=== PATIENT | male | born 1965 | race Hispanic/Latino ===

== ENCOUNTER 2016-08-24 10:54 | Emergency (ER) | payer SELFPAY ==
[2016-08-24 11:14] LABS: HEMOGLOBIN 16.3 g/dL (14.0-18.0); MEAN CELL VOLUME 89.2 fL (80.0-100.0); MEAN CORPUS. HGB CONCENTRATION 34.8 g/dL (32.0-36.0); RED BLOOD COUNT 5.27 X 10^6uL (4.20-6.10); WHITE BLOOD COUNT 7.6 X 10^3uL (3.9-10.7)
[2016-08-24 11:15] LABS: EOSINOPHILS 0.8 % (0.0-6.0); EOSINOPHILS# 0.1 X 10^3uL (0.0-0.4); LYMPHOCYTES 22.9 % (20.0-40.0); LYMPHOCYTES# 1.7 X 10^3uL (0.8-3.8); MEAN PLATELET VOLUME 8.2 fL (7.4-10.4); MONOCYTES 6.8 % (2.0-10.0); MONOCYTES# 0.5 X 10^3uL (0.2-1.0); NEUTROPHILS 69.5 % (54.0-75.0); NEUTROPHILS# 5.3 X 10^3uL (2.6-6.7); PLATELET COUNT 194 X 10^3uL (130-440); RED CELL DISTRIBUTION WIDTH 12.7 % (11.5-14.5)
[2016-08-24 11:19] LABS: BLOOD UREA NITROGEN 27 mg/dL (9-20); CHLORIDE 103 mmol/L (98-107); EST GLOMERULAR FILTRATION RATE > 60 mL/min; GLUCOSE 103 mg/dL (70-100); POTASSIUM 4.1 mmol/L (3.5-5.1); SODIUM 140 mmol/L (137-145)
[2016-08-24 11:31] LABS: TROPONIN I 0.044 ng/mL (0.00-0.034)
[2016-08-24] MEDS ORDERED: NITROGLYCERIN OINT 1 GM PACKET ONE (11:35)
[2016-08-24] MEDS ORDERED: NITROGLYCERIN 0.4 MG TAB.SUBL SUBLINGUAL ONE (11:35)
[2016-08-24] MEDS ORDERED: HEPARIN SOD PORCINE 5,000 UNITS/ML VIAL ONE (11:38)
[2016-08-24] MEDS ORDERED: CLOPIDOGREL BISULFATE 75 MG TABLET PO ONE (11:38)
[2016-08-24] MEDS ORDERED: TENECTEPLASE 50 MG KIT IV ONE (11:38)
--- NOTE | 2016-08-24 12:08 | ER PHYSICIAN DOCUMENTATION ---
Physician Documentation [facility] Name:Salazar Brennan Age:50 yrs Sex:Male :1965 Arrival Date:08/24/2016 Time:10:54 BedTrauma-C Private MD: Mina Pedro Disposition: 08/24 11:35 Critical Care:. tn Disposition: 08/24/16 11:38 Transfer ordered to [facility]. Diagnosis is Anterior Myocardial Infarction, STEMI. - Reason for transfer: Higher level of care. - Accepting physician is Dr. Villanueva. - Condition is Serious. - Problem is new. - Symptoms have improved. COBRA Form completed? Yes Transfer - Mode of Transportation Ambulance HPI: 11:26 This 50 yrs old Male presents to ER via Private Vehicle with complaints of sc Chest Pain. 11:26 The patient or guardian reports chest pain that is located primarily in the anterior sc chest wall. Onset: at 09:30. The pain does not radiate. There has been no movement of pain. Associated signs and symptoms: Pertinent positives: diaphoresis, lightheadedness, nausea. The chest pain is described as aching, a pressure. Duration: The patient or guardian reports a single episode, that is still ongoing. Severity of pain: At its worst the pain was severe in the emergency department the pain has improved. Historical: - Allergies: No known drug Allergies; - Home Meds: 1. None - PMHx: None; - PSHx: None; - Ebola Screening: : Patient negative for fever greater than or equal to 101.5 degrees Fahrenheit, and additional compatible Ebola Virus Disease symptoms. Patient denies exposure to infectious person. Patient denies travel to an Ebola-affected area in the 21 days before illness onset. No symptoms or risks identified at this time. . - Immunization history: Flu Vaccine >1 year. - Social history: Smoking status: Patient states was never smoker of tobacco. Patient/guardian denies using alcohol, street drugs, IV drugs, marijuana. ROS: 11:28 Constitutional: Negative for fever, chills, and weight loss. sc Eyes: Negative for injury, pain, redness, and discharge. Neck: Negative for injury, pain, and swelling. Respiratory: Negative for shortness of breath, cough, wheezing, and pleuritic chest pain. Back: Negative for injury and pain. MS/Extremity: Negative for injury and deformity. 11:28 Neuro: Negative for headache, weakness, numbness, tingling, and seizure. sc 11:28 Cardiovascular: Positive for chest pain. 11:28 Abdomen/GI: Positive for nausea. 11:28 Skin: Positive for diaphoresis. Exam: Constitutional: This is a well developed, well nourished patient who is awake, alert, and in no acute distress. Head/Face: Normocephalic, atraumatic. Eyes: Pupils equal round and reactive to light, extra-ocular motions intact. Lids and lashes normal. Conjunctiva and sclera are non-icteric and not injected. Cornea within normal limits. Periorbital areas with no swelling, redness, or edema. ENT: Nares patent. No nasal discharge, no septal abnormalities noted. Tympanic membranes are normal and external auditory canals are clear. Oropharynx with no redness, swelling, or masses, exudates, or evidence of obstruction, uvula midline. Mucous membranes moist. Neck: Trachea midline, no thyromegaly or masses palpated, and no cervical lymphadenopathy. Supple, full range of motion without nuchal rigidity, or vertebral point tenderness. No meningismus. Chest/axilla: Normal chest wall appearance and motion. Nontender with no deformity. No lesions are appreciated. Abdomen/GI: Soft, non-tender, with normal bowel sounds. No distension or tympany. No guarding or rebound. No evidence of tenderness throughout. Back: No spinal tenderness. No costovertebral tenderness. Full range of motion. Skin: Warm, dry with normal turgor. Normal color with no rashes, no lesions, and no evidence of cellulitis. 11:29 MS/ Extremity: Pulses equal, no cyanosis. Neurovascular intact. Full, normal range sc of motion, negative Homans's, calves equal bilaterally. 11:29 Cardiovascular: Rate: normal, Rhythm: regular, Pulses: Pulses are 2+ in right radial artery, right posterior tibial artery, left radial artery and left posterior tibial artery. 11:29 Respiratory: the patient does not display signs of respiratory distress, Respirations: Breath sounds: are normal, clear throughout. Vital Signs: 11:01 BP 131 / 85 (auto/); sc1 11:01 Pulse 67 MON; Resp 21; Pulse Ox 95% ; sc1 11:15 BP 127 / 87 (auto/); tn1 11:16 Pulse 70 MON; Resp 19; Pulse Ox 94% ; [facility] 11:29 Weight 83.01 kg; st 11:30 BP 122 / 70 (auto/); tn1 11:31 Pulse 74 MON; Resp 24; Pulse Ox 93% ; [facility] [place]:37 BP 105 / 70 (auto/); tn1 11:41 Pulse 75 MON; Resp 20; Pulse Ox 93% ; tn1 11:45 BP 118 / 70 (auto/); tn1 11:46 Pulse 54 MON; Resp 11; Pulse Ox 91% ; [facility] MDM: 11:03 EKG attached [facility] 11:23 Patient medically screened. tn 11:32 Differential diagnosis: abnormal EKG, acute myocardial infarction, anxiety, chest wall sc pain. Patient took aspirin in the Emergency Department. The patient was given a fibrinolytic in the Emergency Department. Data reviewed: vital signs, nurses notes, lab test result(s), EKG, radiologic studies, plain films. Data reviewed: and as a result, I will *Transfer Patient. Data interpreted: surveillance monitor: rate is 70 beats/min, rhythm is normal sinus rhythm. ECG:. 08/24 11:16 Order name: CBC AUTO DIF, MDIF/RMOR IF IND; Complete Time: 12:13 [facility] 08/24 12:13 Interpretation: Normal. tn 08/24 11:23 Order name: BASIC METABOLIC PANEL; Complete Time: 12:13 E[facility] 08/24 12:13 Interpretation: Normal. tn 08/24 11:23 Order name: MAGNESIUM; Complete Time: 12:13 [facility] 08/24 12:13 Interpretation: Normal. tn 08/24 11:32 Order name: TROPONIN I; Complete Time: 12:13 EDAZ 08/24 12:13 Interpretation: Abnormal: TROPONIN I 0.044. tn 08/24 11:20 Order name: CHEST; [place] [id number]; Complete Time: 12:13 EDAZ 08/24 12:13 Interpretation: Normal. tn 08/24 15:31 Order name: CHEST; [place] [id number] [facility] 08/24 11:00 Order name: 12-lead EKG; Complete Time: 11: 08/24 11:00 Order name: Iv Saline Lock; Complete Time: 11: 08/24 11:00 Order name: Place Patient On Monitor; Complete Time: 11: st 08/24 11:00 Order name: Pulse Ox Continuous; Complete Time: 11: st EC:32 Rate is 70 beats/min. Rhythm is regular. QRS [place] is Normal. CT interval is normal. QRS sc interval is normal. QT interval is normal. No Q waves. T waves are Normal. ST Segment is elevated in leads V1, V2, V3, V4, 2-5mm. ST Segment is depressed in leads II, III, aVF, 1-2mm. Clinical impression: Acute SC. Interpreted by me. Reviewed by me. Dispensed Medications: 11:05 Drug: Aspirin Chewable Tablet 324 mg; Route: PO; tn1 12:04 Follow up: Response: No adverse reaction [facility] [place]:10 Drug: NS 0.9% 1000 ml; Route: IV; Rate: TKO; Site: right antecubital; Delivery: [place] tn1 Tubing; 12:09 Follow up: IV Status: Infusing continued upon transfer; IV Intake: 250ml [facility] 11:20 Drug: heparin 4000 units; Route: IV; Rate: bolus; Site: right antecubital; [facility] 11:30 Drug: Nitroglycerin 0.4 mg; Route: Sublingual; [facility] 12:05 Follow up: Response: No adverse reaction; Pain is decreased [facility] 11:30 Drug: Plavix 300 mg; Route: PO; tn1 12:05 Follow up: Response: No adverse reaction [facility] 11:30 Drug: Nitroglycerin Ointment 2 % 1 inches; Route: Transdermal; Site: anterior chest [facility] wall; 11:46 Drug: Lopressor 5 mg; Route: IVP; Site: right antecubital; tn1 12:06 Follow up: Response: No adverse reaction [facility] 11:46 Drug: TNKase per protocol 45 mg; Route: IV; Rate: bolus; Site: right antecubital; tn1 Critical care time excluding procedures: 11:35 Critical care time: Bedside Care: 40 minutes, Consultation: 20 minutes. Total time: 60 sc minutes Signatures: Pearl Alas RN RN st Campbell, Sandy, RN RN [facility] Mina Patel MD MD tn
--- NOTE | 2016-08-24 12:08 | ER NURSING DOCUMENTATION ---
"Nurse's Notes [facility] Name:Salazar Brennan Age:50 yrs Sex:Male :1965 Arrival Date:08/24/2016 Time:10:54 BedTrauma-C Private MD: Diagnosis:Anterior Myocardial Infarction, STEMI Presentation: 08/24 11:04 Acuity: ISAAC 2 st 11:06 Asprin Given Given in ED 325 mg po. ms1 11:06 Presenting complaint: Patient states: chest pain that started approx. 9-9|30am today sc1 while using a push mower. Developed nausea, SOB and sweating. Pt. describes the pain as sharp. Transition of care: patient was not received from another setting of care. AIR CAT ACTIVATION no. Notified ED Physician of patient's arrival and CC Dr. Patel notified. 11:06 Method Of Arrival: Private Vehicle ms1 Triage Assessment: 11:10 General: Appears in no apparent distress, well developed, well nourished, well groomed, ms1 Behavior is cooperative, pleasant. Pain: Complains of pain in mid-sternal area. Cardiovascular: No deficits noted. Historical: - Allergies: No known drug Allergies; - Home Meds: 1. None - PMHx: None; - PSHx: None; - Ebola Screening: : Patient negative for fever greater than or equal to 101.5 degrees Fahrenheit, and additional compatible Ebola Virus Disease symptoms. Patient denies exposure to infectious person. Patient denies travel to an Ebola-affected area in the 21 days before illness onset. No symptoms or risks identified at this time. . - Immunization history: Flu Vaccine >1 year. - Social history: Smoking status: Patient states was never smoker of tobacco. Patient/guardian denies using alcohol, street drugs, IV drugs, marijuana. Screenin:12 Infectious Disease Risk None. Abuse screen: Denies threats or abuse. Nutritional ms1 screening: No deficits noted. Assessment: 11:47 Pain: Pain does not radiate. Pain began 2 hours ago. ms1 Vital Signs: 11:01 BP 131 / 85 (auto/); sc1 11:01 Pulse 67 MON; Resp 21; Pulse Ox 95% ; sc1 11:15 BP 127 / 87 (auto/); sc1 11:16 Pulse 70 MON; Resp 19; Pulse Ox 94% ; sc1 11:29 Weight 83.01 kg; st 11:30 BP 122 / 70 (auto/); sc1 11:31 Pulse 74 MON; Resp 24; Pulse Ox 93% ; sc1 11:37 BP 105 / 70 (auto/); sc1 11:41 Pulse 75 MON; Resp 20; Pulse Ox 93% ; sc1 11:45 BP 118 / 70 (auto/); sc1 11:46 Pulse 54 MON; Resp 11; Pulse Ox 91% ; ms1 ED Course: 10:54 EKG done per protocol. Performed by ED Staff. Shown to ED physician. Labs ordered per [facility] [place]. X-ray ordered. 10:56 Patient arrived in ED. lm3 11:00 Valuables Remains with patient. clinical research monitor on. Pulse ox on. NIBP on. [facility] 11:03 Mina Patel MD is Attending Physician. sc 11:03 EKG attached [facility] 11:[address] 11:04 Inserted peripheral IV: 20 gauge in right antecubital area and blood collected. st 11:06 Lisseth Morgan, COLT is Primary Nurse. [facility] 11:11 Notified ED Physician of patient's arrival and chief complaint. Dr. Patel notified. Arm sc1 band placed on Bed in low position Call Light in Reach Gowned HOB Elevated Side rails up x2. 11:12 Port Xray Completed. dnn 11:20 CHEST; SINGLE VIEW [id number] In Process Unspecified. EDMS 11:21 CHEST; [place] [id number] Sent. dnn Administered Medications: 11:05 Drug: Aspirin Chewable Tablet 324 mg; Route: PO; [facility] 12:04 Follow up: Response: No adverse reaction [facility] 11:10 Drug: NS 0.9% 1000 ml; Route: IV; Rate: TKO; Site: right antecubital; Delivery: [place] ms1 Tubing; 12:09 Follow up: IV Status: Infusing continued upon transfer; IV Intake: 250ml [facility] 11:20 Drug: heparin 4000 units; Route: IV; Rate: bolus; Site: right antecubital; ms1 11:30 Drug: Nitroglycerin 0.4 mg; Route: Sublingual; [facility] 12:05 Follow up: Response: No adverse reaction; Pain is decreased [facility] 11:30 Drug: Plavix 300 mg; Route: PO; [facility] 12:05 Follow up: Response: No adverse reaction [facility] 11:30 Drug: Nitroglycerin Ointment 2 % 1 inches; Route: Transdermal; Site: anterior chest sc1 wall; 11:46 Drug: Lopressor 5 mg; Route: IVP; Site: right antecubital; ms1 12:06 Follow up: Response: No adverse reaction [facility] 11:46 Drug: TNKase per protocol 45 mg; Route: IV; Rate: bolus; Site: right antecubital; ms1 Intake: 12:09 IV: 250ml; Total: 250ml. [facility] Outcome: 11:38 ER care complete, transfer ordered by . ms 12:06 Transferred: Patient will be transferred to: [facility]. Facility [facility] Acceptance Time: August 24, 2016 at 11:15 Patient's face sheet was faxed to accepting facility. Face Sheet included patient's name, address, age, gender, contact information and insurance information. Patient will be transported by: [facility] ground. Report called to: Yari RGEGORY in the ED. Nurse and Physician Charting and Notes were sent to Accepting Facility. All tests and/or procedures with results, if applicable, were sent to accepting facility. 12:06 Condition: stable 12:06 Instructed on need for transfer 12:07 Patient left the ED. [facility] Signatures: Dispatcher [employer] Pearl Raza RN RN st Campbell, Sandy, RN RN ms1 Mina Patel MD MD sc [place], David dnn [place], Lisa 3 "
--- NOTE | 2016-08-24 12:33 | RADIOLOGY REPORT ---
A limited single portable view of the chest, without prior films for comparison , demonstrates the heart, vessels and lungs to be unremarkable. No infiltrate, fluid or pneumothorax is seen. IMPRESSION: Unremarkable limited single portable view of the chest. MTDD
== END 2016-08-24 12:08 | disposition short-term general hospital (02) ==
LOC: ER 10:54
DX: I21.09 ST elevation (STEMI) myocardial infarction involving other coronary artery of anterior wall (principal); R61 Generalized hyperhidrosis; R11.0 Nausea; Z99.89 Dependence on other enabling machines and devices; Z74.3 Need for continuous supervision
CPT/HCPCS: 71010; 80048; 83735; 84484; 85025; 92977; 93005; 96374; 96375; 99285; A0425; A0427; J1644; J3101